=== PATIENT | male | born 1995 | race Caucasian/White ===

== ENCOUNTER 2019-06-21 14:13 | Emergency (ER) | payer BC ==
[~2019-06-21] VITALS: Ht 188 cm; Wt 90.0 kg
[~2019-06-21 14:13] MED LIST: IBUP-1542 PO
[2019-06-21 14:16] VITALS: BP 145/84; Ht 188 cm; Wt 90.0 kg
[2019-06-21 17:12] VITALS: PULSE 68; RESP 18
[2019-06-21] MEDS ORDERED: DIPHTH/TET/ACEL PERTUSS (ADULT) 0.5 ML VIAL IM* ONE (17:30)
== END 2019-06-21 17:12 | disposition home or self-care (01) ==
LOC: FTE 14:13
DX: S62.616A Displaced fracture of proximal phalanx of right little finger, initial encounter for closed fracture (principal); F17.210 Nicotine dependence, cigarettes, uncomplicated; W18.39XA Other fall on same level, initial encounter; Y92.9 Unspecified place or not applicable